=== PATIENT | female | born 1950 | race Caucasian/White ===

== ENCOUNTER 2020-10-19 08:53 | Emergency (ER) | payer OTHER ==
--- NOTE | 2020-10-19 09:16 | ER ---
Nurse's Notes [facility] Name: Shilpi Valles Age: 69 yrs Sex: Female : 1950 Arrival Date: 10/19/2020 Time: 08:55 Bed 14 Private MD: Diagnosis: Fall on same level from slipping, tripping and stumbling;Pain in left hand Presentation: 10/19 08:59 Chief complaint: Patient states: was walking and thinks her show may have caused her to iw fall, fell to her knees, denies pain. 08:59 Acuity: SANDEE 4 iw 08:59 Method Of Arrival: Wheelchair iw 09:00 Coronavirus screen: At this time, the client does not indicate any symptoms associated iw with coronavirus-19. Ebola Screen: Patient negative for fever greater than or equal to 101.5 degrees Fahrenheit, and additional compatible Ebola Virus Disease symptoms Patient denies exposure to infectious person. Patient denies travel to an Ebola-affected area in the 21 days before illness onset. No symptoms or risks identified at this time. Initial Sepsis Screen: Does the patient meet any 2 criteria? No. Patient's initial sepsis screen is negative. Does the patient have a suspected source of infection? No. Patient's initial sepsis screen is negative. Risk Assessment: Do you want to hurt yourself or someone else? Patient reports no desire to harm self or others. Onset of symptoms was October 19, 2020. Triage Assessment: 09:06 General: Appears in no apparent distress. comfortable, Behavior is calm, cooperative, bp appropriate for age. Pain: Complains of pain in right hand. EENT: No deficits noted. Neuro: No deficits noted. Cardiovascular: No deficits noted. Respiratory: No deficits noted. GI: No signs and/or symptoms were reported involving the gastrointestinal system. : No signs and/or symptoms were reported regarding the genitourinary system. Musculoskeletal: No deficits noted. Historical: - Allergies: 09:00 Morphine; iw 09:00 NSAIDS; iw 09:00 Cipro; iw - PMHx: 09:03 Anemia; iw - PSHx: 09:03 alyssa knee; Cholecystectomy; Hysterectomy; vein removal right leg; fusion L5-S1; iw - Immunization history:: Adult Immunizations up to date. - Social history:: Smoking status: Patient denies any tobacco usage or history of. Screenin:06 Abuse screen: Denies threats or abuse. Denies injuries from another. Nutritional sv screening: No deficits noted. Tuberculosis screening: No symptoms or risk factors identified. Fall Risk None identified. Assessment: 09:07 General: SEE TRIAGE NOTE. bp 09:39 Reassessment: PT D/C HOME AMBULATORY, DX WITH FALL FROM STANDING. bp Vital Signs: 09:00 BP 112 / 68; Pulse 53; Resp 16; Temp 98.7; Pulse Ox 100% on R/A; Weight 102.06 kg; iw Height 5 ft. 7 in. (170.18 cm); 09:39 BP 120 / 62; Pulse 53; Resp 17; Temp 98; Pulse Ox 100% ; bp 09:00 Body Mass Index 35.24 (102.06 kg, 170.18 cm) iw ED Course: 08:55 Patient arrived in ED. as 09:00 Triage completed. iw 09:00 Arm band placed on. iw 09:03 Rachel Bour[facility]. kb 09:03 Manjeet Ferrera MD is Attending Physician. kb 09:05 Kingston Brown, RN is Primary Nurse. bp 09:06 Patient has correct armband on for positive identification. Bed in low position. Call sv light in reach. Side rails up X2. Pulse ox on. NIBP on. Door closed. Head of bed elevated. 09:40 No provider procedures requiring assistance completed. Patient did not have IV access bp during this emergency room visit. Administered Medications: No medications were administered Outcome: 09:15 Discharge ordered by . kb 09:40 Discharged to home ambulatory. bp 09:40 Condition: stable 09:40 Discharge instructions given to patient, Instructed on discharge instructions, follow up and referral plans. Demonstrated understanding of instructions, follow-up care. 09:42 Patient left the ED. bp Signatures: Rachel Bourgeois FNP-C FNP-Ckb Verde, Stephanie, RN RN sv Martinez, Amelia as Williams, Irene, QUINTIN RN iw Kingston Brown, QUINTIN RN bp
--- NOTE | 2020-10-19 09:16 | EDPHYS ---
Physician Documentation [facility] Name: Shilpi Valles Age: 69 yrs Sex: Female : 1950 Arrival Date: 10/19/2020 Time: 08:55 Bed 14 Private MD: ED Physician Manjeet Ferrera HPI: 10/19 09:23 This 69 yrs old Female presents to ER via Wheelchair with complaints of Fall kb Injury. 09:23 Details of fall: The patient fell from an upright position, while walking. Onset: The kb symptoms/episode began/occurred just prior to arrival. Associated injuries: The patient sustained heel of right hand, tender. Severity of symptoms: At their worst the symptoms were very mild, in the emergency department the symptoms are unchanged. The patient has not experienced similar symptoms in the past. The patient has not recently seen a physician. Pt states she was walking down the [address] and tripped over her own feet causing her to fall to her knees and left hand. States she doesn't have any pain unless she presses on the heel of her left hand. Ambulates with steady gait and no pain. . Historical: - Allergies: 09:00 Morphine; iw 09:00 NSAIDS; iw 09:00 Cipro; iw - PMHx: 09:03 Anemia; iw - PSHx: 09:03 alyssa knee; Cholecystectomy; Hysterectomy; vein removal right leg; fusion L5-S1; iw - Immunization history:: Adult Immunizations up to date. - Social history:: Smoking status: Patient denies any tobacco usage or history of. ROS: 09:21 Constitutional: Negative for fever, chills, and weight loss, Cardiovascular: Negative kb for chest pain, palpitations, and edema, Respiratory: Negative for shortness of breath, cough, wheezing, and pleuritic chest pain, Abdomen/GI: Negative for abdominal pain, nausea, vomiting, diarrhea, and constipation, Skin: Negative for injury, rash, and discoloration, Neuro: Negative for headache, weakness, numbness, tingling, and seizure. 09:21 MS/extremity: Positive for tenderness, of the heel of left hand. Exam: 09:22 Constitutional: This is a well developed, well nourished patient who is awake, alert, kb and in no acute distress. Head/Face: Normocephalic, atraumatic. Skin: Warm, dry with normal turgor. Normal color with no rashes, no lesions, and no evidence of cellulitis. MS/ Extremity: Pulses equal, no cyanosis. Neurovascular intact. Full, normal range of motion. Neuro: Awake and alert, GCS 15, oriented to person, place, time, and situation. Cranial nerves II-XII grossly intact. Motor strength 5/5 in all extremities. Sensory grossly intact. Cerebellar exam normal. Normal gait. 09:22 Respiratory: the patient does not display signs of respiratory distress, Respirations: normal. Vital Signs: 09:00 BP 112 / 68; Pulse 53; Resp 16; Temp 98.7; Pulse Ox 100% on R/A; Weight 102.06 kg; iw Height 5 ft. 7 in. (170.18 cm); 09:39 BP 120 / 62; Pulse 53; Resp 17; Temp 98; Pulse Ox 100% ; bp 09:00 Body Mass Index 35.24 (102.06 kg, 170.18 cm) iw MDM: 09:03 Patient medically screened. kb 09:23 Data reviewed: vital signs, nurses notes. Data interpreted: Pulse oximetry: on room air kb is 100 %. Interpretation: normal. Counseling: I had a detailed discussion with the patient and/or guardian regarding: the historical points, exam findings, and any diagnostic results supporting the discharge/admit diagnosis, the need for outpatient follow up, a family practitioner, to return to the emergency department if symptoms worsen or persist or if there are any questions or concerns that arise at home. ED course: Pt doesn't want any x-rays done. States everything feels fine and she has an appt at 0920 that she would like to get to. Pt asked to be discharged. Administered Medications: No medications were administered Disposition: 10:41 Co-signature as Attending Physician, Manjeet Ferrera MD I agree with the assessment and kdr plan of care. Disposition: 10/19/20 09:15 Discharged to Home. Impression: Fall on same level from slipping, tripping and stumbling, Pain in left hand. - Condition is Stable. - Discharge Instructions: Musculoskeletal Pain. - Medication Reconciliation Form, Thank You Letter, Antibiotic Education, Prescription Opioid Use form. - Follow up: Emergency Department; When: As needed; Reason: Worsening of condition. Follow up: Private Physician; When: 2 - 3 days; Reason: Recheck today's complaints, Continuance of care, Re-evaluation by your physician. Signatures: Rachel Bourgeois, BRY-C IMAGE ARCHIVIST-Manjeet Beach MD MD kdr Maisha Enriquez, QUINTIN RN iw Kingston Brown, QUINTIN RN bp Corrections: (The following items were deleted from the chart) 09:25 09:21 MS/extremity: Positive for tenderness, of the heel of right hand, kb kb 09:42 09:15 10/19/2020 09:15 Discharged to Home. Impression: Fall on same level from bp slipping, tripping and stumbling; Pain in left hand. Condition is Stable. Forms are Medication Reconciliation Form, Thank You Letter, Antibiotic Education, Prescription Opioid Use. Follow up: Emergency Department; When: As needed; Reason: Worsening of condition. Follow up: Private Physician; When: 2 - 3 days; Reason: Recheck today's complaints, Continuance of care, Re-evaluation by your physician. kb
[2020-10-19 09:47] VITALS: O2SAT 100
[2020-10-19 09:48] VITALS: BP 120/62; TEMP 98
== END 2020-10-19 09:42 | disposition home or self-care (01) ==
LOC: ER 08:53
DX: M79.642 Pain in left hand (principal); W01.0XXA Fall on same level from slipping, tripping and stumbling without subsequent striking against object, initial encounter
CPT/HCPCS: 99283